=== PATIENT | male | born 1975 | race Caucasian/White ===

== ENCOUNTER 2018-08-13 18:13 | Emergency (ER) | payer BC ==
[~2018-08-13] VITALS: Ht 177.8 cm; Wt 90.9 kg
[2018-08-13 18:22] VITALS: Ht 177.8 cm; Wt 90.9 kg
[2018-08-13] MEDS ORDERED: OMEPRAZOLE20 M1 PO (18:24)
[2018-08-13] MEDS ORDERED: NEXIUM40 MG PO (18:24)
[2018-08-13 18:47] LABS: APPEARANCE CLEAR (CLEAR); BILIRUBIN NEGATIVE (NEGATIVE); COLOR YELLOW (YELLOW); GLUCOSE NEGATIVE (NEGATIVE); KETONE NEGATIVE (NEGATIVE); NITRITE NEGATIVE (NEGATIVE); PROTEIN NEGATIVE (NEGATIVE); SPECIFIC GRAVITY 1.025 (1.005-1.020); UROBILINOGEN NORMAL (NORMAL)
[2018-08-13 19:05] LABS: BASOPHILS 0.1 % (0-2); EOSINOPHILS 0.5 % (0-7); HEMATOCRIT 50.5 % (42.0-54.0); HEMOGLOBIN 17.9 g/dL (13.5-17.5); IMMATURE GRANULOCYTES 0.3 % (0-5); LYMPHOCYTES 8.6 % (15-50); MCH 29.6 pg (26.0-34.0); MCHC 35.4 g/dL (31.0-37.0); MCV 83.6 fL (80.0-100.0); MEAN PLATELET VOLUME 10.1 fL (7.4-10.4); MONOCYTES 4.1 % (2-11); NEUTROPHILS 86.4 % (40-80); PLATELET COUNT 258 10x3/uL (130-400); RBC 6.04 10x6/uL (4.20-6.10); RDW 12.5 % (11.5-14.5)
[2018-08-13 19:18] LABS: ALBUMIN 4.1 g/dL (3.4-5.0); ALKALINE PHOSPHATASE 60 U/L (46-116); ALT (SGPT) 46 U/L (10-68); BILIRUBIN - TOTAL 0.63 mg/dL (0.2-1.3); CALC OSMOLALITY 279 mosm/kg (275-300); CALCIUM 8.8 mg/dL (8.5-10.1); CARBON DIOXIDE 27.2 mmol/L (21.0-32.0); CHLORIDE - SERUM 103 mmol/L (98-107); CREATININE - SERUM 1.2 mg/dL (0.6-1.3); GLUCOSE 113 mg/dL (74-106); POTASSIUM - SERUM 3.8 mmol/L (3.5-5.1); PROTEIN - SERUM 7.7 g/dL (6.4-8.2); SODIUM 140 mmol/L (136-145); UREA NITROGEN 13 mg/dL (7-18); eGFR NON AFRICAN AMERICAN 71 mL/min (90-120)
[2018-08-13 19:21] LABS: AMYLASE - SERUM 78 U/L (25-115); LIPASE 87 U/L (73-393); TROPONIN-I < 0.017 ng/mL (0.000-0.060)
[2018-08-13] MEDS ORDERED: CIPRO500 MG PO (22:05)
[2018-08-13] MEDS ORDERED: FLAGYL500 MG PO (22:05)
[2018-08-13] MEDS ORDERED: ZOFRAN ODT4 MG/UDTAB PO (22:05)
[2018-08-13 22:30] VITALS: BP 111/65
== END 2018-08-13 22:30 | disposition home or self-care (01) ==
LOC: D.ER 18:13
PROVIDERS: Family Medicine
DX: K57.32 Diverticulitis of large intestine without perforation or abscess without bleeding (principal); D72.829 Elevated white blood cell count, unspecified; R11.2 Nausea with vomiting, unspecified; K21.9 Gastro-esophageal reflux disease without esophagitis